=== PATIENT | male | born 1990 | race Caucasian/White ===

== ENCOUNTER 2020-10-10 10:34 | Emergency (ER) | payer SELFPAY ==
[~2020-10-10] VITALS: Ht 177.8 cm; Wt 75.0 kg
[2020-10-10] MEDS ORDERED: IBUPROFEN 600 MG TABLET PO ONE (11:30)
[2020-10-10 11:35] VITALS: BP 121/86
== END 2020-10-10 11:48 | disposition home or self-care (01) ==
LOC: EMS 11:01
DX: G89.29 Other chronic pain (principal); M25.562 Pain in left knee; F17.210 Nicotine dependence, cigarettes, uncomplicated; Z90.49 Acquired absence of other specified parts of digestive tract
CPT/HCPCS: 99282; Z7502; Z7610